=== PATIENT | male | born 1990 | race Caucasian/White ===

== ENCOUNTER 2016-02-29 22:02 | Emergency (ER) | payer BC, OTHER ==
[~2016-02-29] VITALS: Ht 182.9 cm; Wt 85.5 kg
[2016-02-29 22:09] VITALS: Ht 182.9 cm; Wt 85.5 kg
[2016-03-01] MEDS ORDERED: HYDROCODONE/APAP (10/325) TAB PO ONE (01:30)
--- NOTE | 2016-03-01 01:51 | ERA ---
ER Documentation Chief Complaint Date/Time DATE: 03/01/16 TIME: 01:45 Chief Complaint left foot swelling/hit foot against door HPI Patient is a 25-year-old male who presents to the emergency department with left foot pain and swelling 3 hours. Patient states that he was getting into the car when he accidentally slammed the door on his left foot. Patient reports immediate pain. Patient states that the pain is worse when walking. Patient states his current pain level is a 7 out of 10. Patient denies any numbness or tingling down his leg. Patient states he has not taken any pain medication but has iced his foot. Patient states that he has been ambulating by walking on his heel. Patient is unable to bear weight on midfoot. Patient denies any fever or chills. Patient denies any previous history of injuries to the affected extremity. ROS All systems reviewed and are negative except as per history of present illness. Medications Home Meds Active Scripts Ibuprofen* (Motrin*) 600 Mg Tab, 600 MG PO Q6, #30 TAB Prov:LIBORIO BARNETT PA-C 03/01/16 Hydrocodone/Acetaminophen (Westfield 5-325 Tablet) 1 Each Tablet, 1 TAB PO Q6H Y for PAIN, #10 TAB Prov:LIBORIO BARNETT PA-C 03/01/16 Allergies Allergies: Coded Allergies: No Known Allergy (Unverified , 02/29/16) PMhx/Soc Medical and Surgical Hx: pt denies Medical Hx, pt denies Surgical Hx History of Surgery: No Anesthesia Reaction: No Hx Neurological Disorder: No Hx Respiratory Disorders: No Hx Cardiac Disorders: No Hx Psychiatric Problems: No Hx Miscellaneous Medical Probl: No Hx Alcohol Use: Yes Hx Substance Use: No Hx Tobacco Use: No Smoking Status: Never smoker Physical Exam Vitals Vital Signs Date Time Temp Pulse Resp B/P Pulse Ox O2 Delivery O2 Flow Rate FiO2 03/01/16 02:36 97.5 85 18 139/87 100 Room Air 02/29/16 22:09 98.3 82 20 174/89 99 Physical Exam GENERAL: Well-developed, well-nourished male. Appears in no acute distress. HEAD: Normocephalic, atraumatic. EYES: Pupils are equally reactive bilaterally. EOMs grossly intact. No conjunctival erythema. ENT: Moist mucous membranes. No uvula deviation. No kissing tonsils. NECK: Supple. No lymphadenopathy or thyromegaly. No meningismus. LUNG: Clear to auscultation bilaterally. No rhonchi, wheezing, rales or coarse breath sounds. HEART: Regular rate and rhythm. No murmurs, rubs or gallops. EXTREMITIES: Equal pulses bilaterally. No peripheral clubbing, cyanosis or edema. No unilateral leg swelling. NEUROLOGIC: Alert and oriented. Moving all four extremities without any difficulty. Normal speech. Steady gait. SKIN: Normal color. Warm and dry. No rashes or lesions. LEFT FOOT: No obvious deformity. +Ecchymosis and soft tissue swelling to dorsal aspect of foot. Skin intact. Full ROM of toes, ankle and knee. Tender to palpation of dorsal aspect of foot. Nontender to palpation of ankle, calf, knee. Sensation intact to light touch. Neurovascularly intact. (Able to plantarflex, dorsiflex, hu foot, invert foot, raise big toe.) 2+ DP and DT pulses. Results 24 hrs Current Medications Medications (Trade) Dose Ordered Sig/Wayne Route PRN Reason Start Time Stop Time Status Last Admin Dose Admin Acetaminophen/ Hydrocodone Bitart (Westfield (10325)) 1 tab ONCE ONCE PO 03/01/16 01:30 03/01/16 01:31 DC 03/01/16 01:15 Procedures/MDM ED COURSE: The patient was stable throughout ED course. I kept the patient and/or family informed of laboratory and diagnostic imaging results throughout the ED course. DIAGNOSTIC IMAGING: Read by radiologist. DIAGNOSTIC IMAGING REPORT Patient: JOSELO MONGE : 1990 Age: 25 Sex: M MR #: [id number] DOS: 03/01/16 0105 Ordering MD: LIBORIO BARNETT PA-C Location: [facility] Room/Bed: PROCEDURE: XR Foot. CLINICAL INDICATION: left foot pain TECHNIQUE: 3 views of the left foot were obtained. COMPARISON: None. FINDINGS: No fracture or dislocation is seen. No foreign body is seen. No marked soft tissue swelling. No significant degenerative change. IMPRESSION: No definite acute fracture or dislocation. RPTAT: HLBE Physician Dale Date Time Electronically viewed and signed by Estefany Garcia Physician on 03/01/2016 02 :07 LE/ CC: LIBORIO BARNETT PA-C MEDICATIONS GIVEN: Westfield 10-325 mg Patient tolerated medication well with no adverse reactions. Patient reported improvement in pain. SPLINT APPLICATION: The patient was verbally consented at bedside prior to walking shoe application. Patient was explained the risks, benefits and alternatives to this procedure. The patient was neurovascularly intact prior to and status post application shoe application. The patient tolerated the procedure well with no complications. Splint type: walking boot Extremity: Left foot Indication: foot contusion MEDICAL DECISION MAKING: This is a 25 year old male who presents with left mid foot pain x 3 hours Patient states that he accidently closed the car door onto his left door. Vital signs were reviewed. Patient was afebrile. Left foot xrays showed no fracture or dislocation is seen. No foreign body is seen. No marked soft tissue swelling. No significant degenerative change. Given these findings, the patients presentation is most consistent with toe contusion. I have a much lower clinical concern for ankle dislocation, ankle fracture, tarsal bone fracture, metatarsal fracture, phalangeal fracture, lisfranc injury,septic joint, DVT, compartment syndrome, plantar fasciitis, diabetic neuropathy or pes planus. At this time, unable to rule out any tendon and ligament injuries. Patient was placed in a walking shoe was comfort. Patient was neurovascularly intact pre- and post- shoe application. PRESCRIPTIONS: Westfield, Ibuprofen DISCHARGE: At this time, patient is stable for discharge and outpatient management. RICE therapy and ROM exercises were advised to avoid stiffness. I have instructed the patient to follow-up with his/her primary care physician in 1-2 days. I have discussed with the patient the possibility of needing to see an material specialist for further workup and imaging if the pain persists. I have instructed the patient to promptly return to the ER for any new or worsening symptoms including increased pain, swelling, redness, warmth or fever. The patient and/or family expressed understanding of and agreement with this plan. All questions were answered. Home care instructions were provided. Departure Diagnosis: Primary Impression: Foot pain Qualified Code: M79.672 - Left foot pain Condition: Stable Patient Instructions: Fracture, Foot Referrals: [facility] YOU HAVE RECEIVED A MEDICAL SCREENING EXAM AND THE RESULTS INDICATE THAT YOU DO NOT HAVE A CONDITION THAT REQUIRES URGENT TREATMENT IN THE EMERGENCY DEPARTMENT. FURTHER EVALUATION AND TREATMENT OF YOUR CONDITION CAN WAIT UNTIL YOU ARE SEEN IN YOUR DOCTORS OFFICE WITHIN THE NEXT 1-2 DAYS. IT IS YOUR RESPONSIBILITY TO MAKE AN APPOINTMENT FOR FOLOW-UP CARE. IF YOU HAVE A PRIMARY DOCTOR --you should call your primary doctor and schedule an appointment IF YOU DO NOT HAVE A PRIMARY DOCTOR YOU CAN CALL OUR PHYSICIAN REFERRAL HOTLINE AT IF YOU CAN NOT AFFORD TO SEE A PHYSICIAN YOU CAN CHOSE FROM THE FOLLOWING [facility] [address] [facility] [address] [facility] [facility] [address] [facility] [address] [facility] [address] [facility]. [facility] [address] [facility]. [facility] YOU HAVE RECEIVED A MEDICAL SCREENING EXAM AND THE RESULTS INDICATE THAT YOU DO NOT HAVE A CONDITION THAT REQUIRES URGENT TREATMENT IN THE EMERGENCY DEPARTMENT. FURTHER EVALUATION AND TREATMENT OF YOUR CONDITION CAN WAIT UNTIL YOU ARE SEEN IN YOUR DOCTORS OFFICE WITHIN THE NEXT 1-2 DAYS. IT IS YOUR RESPONSIBILITY TO MAKE AN APPOINTMENT FOR FOLOW-UP CARE. IF YOU HAVE A PRIMARY DOCTOR --you should call your primary doctor and schedule and appointment IF YOU DO NOT HAVE A PRIMARY DOCTOR YOU CAN CALL OUR PHYSICIAN REFERRAL HOTLINE AT . IF YOU CAN NOT AFFORD TO SEE A PHYSICIAN YOU CAN CHOSE FROM THE FOLLOWING [facility] INSTITUTIONS: [facility] [address] [place] [address] [facility] [address] [place] [address] [facility] [address] [place] [address] [facility] Hours: Mon-Fri 9:00 AM - 5:00 PM Additional Instructions: Call your primary care doctor TOMORROW for an appointment during the next 1-2 days.See the doctor sooner or return here if your condition worsens before your appointment time. Unable to rule out any ligamentous injuries at this time. Patient will need to follow-up with an material specialist and/or obtain MRI imaging for further management. LIBORIO BARNETT PA-C Mar 01, 2016 01:51
--- NOTE | 2016-03-01 02:08 | RADRPT ---
PROCEDURE: XR Foot. CLINICAL INDICATION: left foot pain TECHNIQUE: 3 views of the left foot were obtained. COMPARISON: None. FINDINGS: No fracture or dislocation is seen. No foreign body is seen. No marked soft tissue swelling. No s ignificant degenerative change. IMPRESSION: No definite acute fracture or dislocation. RPTAT: HLBE Estefany Garcia Physician Date Time Electronically viewed and signed by Estefany Garcia, Physician on 03/01/2016 02:07 LE/
[2016-03-01] MEDS ORDERED: HYDR-906 PO (02:25)
[2016-03-01] MEDS ORDERED: IBUP-1542 PO (02:25)
[2016-03-01 02:36] VITALS: BP 139/87; PULSE 85; RESP 18; TEMP 97.5
== END 2016-03-01 02:42 | disposition home or self-care (01) ==
LOC: FTE 22:02
DX: S90.32XA Contusion of left foot, initial encounter (principal); W23.0XXA Caught, crushed, jammed, or pinched between moving objects, initial encounter; Y92.9 Unspecified place or not applicable